=== PATIENT | male | born 1965 | race Caucasian/White ===

== ENCOUNTER 2017-01-06 22:50 | Emergency (ER) | payer SELFPAY ==
[~2017-01-06] VITALS: Ht 165.1 cm; Wt 57.0 kg
[2017-01-06] MEDS ORDERED: ACET-2116 PO (22:59)
[2017-01-07] MEDS ORDERED: PROMETHAZINE HCL 25 MG TABLET PO ONE (00:15)
[2017-01-07 01:03] VITALS: BP 119/78
== END 2017-01-07 01:44 | disposition home or self-care (01) ==
LOC: EMS 22:52 → EEVIPCON 22:52 → EMS 01-07 01:44
DX: Z02.89 Encounter for other administrative examinations (principal); S20.222A Contusion of left back wall of thorax, initial encounter; F10.129 Alcohol abuse with intoxication, unspecified; F11.10 Opioid abuse, uncomplicated; Y90.9 Presence of alcohol in blood, level not specified; Y04.0XXA Assault by unarmed brawl or fight, initial encounter; Y93.89 Activity, other specified; Y92.89 Other specified places as the place of occurrence of the external cause; Y99.8 Other external cause status
CPT/HCPCS: 99284